=== PATIENT | male | born 1985 | race Caucasian/White ===

== ENCOUNTER 2021-02-16 07:15 | Emergency (ER) | payer MEDICAID, SELFPAY ==
[2021-02-16 07:30] VITALS: BP 138/85; PULSE 85; RESP 20; TEMP 36.7; O2SAT 100; BMI 22.4
[2021-02-16 07:36] VITALS: BMI 22.4
--- NOTE | 2021-02-16 08:21 | [facility].EDGENADL ---
ED Disposition Clinical Impression: Abscess of skin or subcutaneous tissue Disposition: Home, Self-Care Condition on Discharge: Good Instructions: DI for Skin Abscess Additional Instructions: Antibiotic as directed. Tylenol as needed for pain. Prescriptions: Doxycycline Hyclate [Doxycycline 100mg Capsule] 100 mg PO Q12 10 Days #20 cap Prescription Printed Referrals: Bandar Reed [Primary Care Provider] - - Critical Care Critical Care Time: No Attestation: On 02/16/21, the high probability of a clinically significant, sudden or life threatening deterioration of the following system(s) required my full and direct attention, intervention and personal management. The time I documented below is in addition to time spent performing reported procedures but includes the following listed in this critical care notation. Medical Decision Making - Chaparro Inquiry Pt receiving controlled substance: No Chaparro was queried for this patient: No Vital Signs: 02/16/21 07:30 Temperature 98.1 F Temperature Source Oral Pulse Rate [Right] 85 Respiratory Rate 20 Blood Pressure [Right Arm] 138/85 Blood Pressure Mean [Right Arm] 102 Blood Pressure Source [Right Arm] Automatic Cuff 02 Sat by Pulse Oximetry 100 Oxygen Delivery Method Room Air - Lab Data Lab Results 02/16/21 08:40: WBC 9.3, RBC 4.85, Hgb 14.0 L, Hct 39.8 L, MCV 82.1, MCH 28.9, MCHC 35.2, RDW 13.1, Plt Count 210, MPV 7.2 L, Neut % (Auto) 74.0, Lymph % (Auto) 15.7, [place] % (Auto) 7.2, Eos % (Auto) 0.2, Baso % (Auto) 0.6 02/16/21 08:40: Sodium 133 L, Potassium 4.5, Chloride 98, Carbon Dioxide 18 L, Anion Gap 21.5 H, BUN 32 H, Creatinine 1.70 H, Estimated Creat Clear 65, Estimated GFR 47 L, Est GFR ( Amer) 56 L, Glucose 97, Calcium 9.6 02/16/21 09:28: Urine Color Yellow, Urine Appearance Clear, Urine pH 5.5, Ur Specific [place] >= 1.030, Urine Protein 2+, Urine Glucose (UA) Negative, Urine Ketones Negative, Urine Blood Negative, Urine Nitrate Negative, Urine Bilirubin 1+ A, Urine Urobilinogen 1.0, Ur Leukocyte Esterase Negative 02/16/21 09:28: Urine Opiates Screen Negative, Urine Methadone Screen Negative, Ur Barbituates Screen Negative, Ur Phencyclidine Scrn Negative, U Benzodiazepines Scrn Negative, Urine Cocaine Screen Negative, U Marijuana (THC) Screen Negative Result diagrams: 02/16/21 08:40 02/16/21 08:40 Orders (Tests/Meds): ORDERS Category Date Time Status Complete Blood Count Auto Diff Stat Lab 02/16/21 08:40 Results Drug Screen,Urine Stat Lab 02/16/21 09:28 Results Urinalysis and Microscopic Stat Lab 02/16/21 09:28 Results Wound Culture and Gram Stain Stat Micro 02/16/21 09:00 Received General Adult HPI - General Chief complaint: Skin/Abscess/Foreign Body Stated complaint: chiggars all over body Time Seen by Provider: 02/16/21 08:10 Mode of Arrival: Ambulatory Source of Information: Patient Limitations: No Limitations Description of Symptoms (Recalled from ER Triage Doc. by RN): c/o sores all over x1 month, worsening over the past 2 days. states he snorted a pain pill last night & passed out by the point lay ira & woke up with chigger bites. abcess to right clavicle area, painful & red. also c/o peeing blood x2 days with nausea/vomting x1 week. - History of Present Illness HPI narrative: To the emergency room saying that he was partying last night. When he woke up this morning. He has a rash and itching has been going on for over a month and it is worse at night also he has. Right supraclavicular swelling that has been going on for over a month is tender to touch. He has no fever or chills. Denies any chest pain or abdominal pain. Onset (ago): month(s) - Related Data Previous Rx's Medication Instructions Recorded Doxycycline Hyclate [Doxycycline 100 mg PO Q12 10 Days #20 cap 02/16/21 100mg Capsule] Allergies Allergy/AdvReac Type Severity Reaction Status Date / Time No Known Allergies Allergy Verified
--- NOTE | 2021-02-16 08:58 | PC.NURSE ---
Abscess drained by MD at bedside, sent for cultures.
[2021-02-16 08:59] LABS: Chloride 98 mmol/L (98-107); Potassium 4.5 mmoL/L (3.5-5.1); Sodium 133 mmol/L (136-145)
[2021-02-16 09:02] LABS: Anion Gap 21.5 mEq/L (5-15); Blood Urea Nitrogen 32 mg/dl (9-20); Calcium 9.6 mg/dl (8.4-10.2); Carbon Dioxide 18 mmol/L (22.0-30.0); Creatinine Clearance Estimated 65 mL/min (50-200); Estimated Glomerular Filt Rate 47 ml/min (>60); GFR (African American) 56 ML/MIN (>60); Glucose 97 mg/dl (74-100)
[2021-02-16 09:38] LABS: Microscopic, Urine URINE MICROSCOPIC (MICROSCOPIC)
[2021-02-16 09:41] LABS: Appearance,Urine CLEAR (Clear); Blood, Urine Negative (Negative); Color,Urine YELLOW (Yellow); Glucose,Urine (UA) Negative (Negative); Ketones,Urine Negative (Negative); Leukocyte Esterase,Urine Negative (Negative); Nitrate,Urine Negative (Negative); PH,Urine 5.5 (5.0-8.5); Protein,Urine 2+ (Negative); Specific Gravity, Urine >= 1.030 (1.005-1.030)
[2021-02-16 09:52] LABS: Barbiturates Screen,Urine Negative ng/ml (<200); Benzodiazepines Screen,Urine Negative ng/ml (<200)
[2021-02-16 09:53] LABS: Cannabinoid Screen,Urine Negative ng/ml (<50)
[2021-02-16 09:54] LABS: Cocaine Screen,Urine Negative ng/ml (<300); Methadone Screen,Urine Negative ng/ml (<300)
[2021-02-16 09:55] LABS: Opiate Screen,Urine Negative ng/ml (<300)
[2021-02-16 09:58] LABS: Phencyclidine Screen,Urine Negative ng/ml (<25)
[2021-02-16 10:04] LABS: Bilirubin,Urine 1+ (Negative)
[2021-02-16 10:29] VITALS: BP 122/74; PULSE 89; RESP 18; TEMP 36.6; O2SAT 100
[2021-02-16 11:14] LABS: Bacteria,Urine 1+ /lpf; RBC,Urine Occasional #/hpf (0-3); Squamous Epithelial Cell,Urine Occasional #/hpf (0-5)
[2021-02-23 19:10] LABS: Amphetamine Positive (.); Amphetamine (GC/MS) 7535 ng/mL (Cutoff=500); Amphetamines Positive (.); Methamphetamine Positive (.); Methamphetamine (GC/MS) >3000 ng/mL (Cutoff=500)
== END 2021-02-16 10:33 | disposition home or self-care (01) ==
PROVIDERS: Emergency Provider Internal Medicine; PCP Family Medicine Sports Medicine
DX: L02.11 Cutaneous abscess of neck (principal); B88.0 Other acariasis
CPT/HCPCS: 10060; 80048; 80305; 80324; 81001; 87070; 87077; 87186; 87205; 99284